=== PATIENT | male | born 1935 | race Caucasian/White ===

== ENCOUNTER 2016-06-08 12:51 | Day surgery (SDC) | payer MEDICARE ==
--- NOTE | ~2016-06-08 | EGD ---
EGD REPORT [facility] [address] [place]. [address] NAME: MOSHE MARTIN : [birth year] STATUS : REG [facility] [place] PAT#: [id number] AGE: 80 ADM/REG DATE : 06/08/16 MR#: [id number] REPORT SERV DATE: 06/08/16 DICTATED BY: RIZWANA FINK DATE: 06/08/16 REPORT STATUS : Draft TRANSCRIBED BY: [employer] [facility] DATE: 06/08/16 [facility]oscopy Center Patient Name: Moshe Martin Date of : 1935 Attending MD: RIZWANA FINK MD Procedure Date No Time: 06/08/2016 Procedure: Upper GI endoscopy Indications: Dysphagia, H/O eso cancer, recent PET with no cancer Referring MD: DANIEL SALAZAR RICHARD H. JENNINGS III, MD Medicines: See the Anesthesia note for documentation of the administered medications Complications: No immediate complications. Procedure: Pre-Anesthesia Assessment: - ASA Grade Assessment: III - A patient with severe systemic disease. After obtaining informed consent, the endoscope was passed under direct vision. Throughout the procedure, the patient's blood pressure, pulse, and oxygen saturations were monitored continuously. The GIF H190 [id number] was introduced through the mouth, and advanced to the lower third of esophagus. The GIF [id number] was introduced through the and advanced to the second part of duodenum. The upper GI endoscopy was accomplished without difficulty. The patient tolerated the procedure well. Initially performed in standard endo room but had to move to fluoro room Findings: Significant amount of saliva in esophagus evacuated. A Benign prob radiation induced severe (stenosis; an endoscope cannot pass) stenosis was found at GE Junction and was traversed after dilation with pediatric upper scope. A guidewire was placed under fluoroscopic guidance and the scope was withdrawn. Dilation was performed with a Savary dilator with no resistance at 18 Fr, no resistance at 21 Fr and no resistance at 24 Fr. The entire examined stomach was normal. The cardia and gastric fundus were normal on retroflexion. The examined duodenum was normal. Impression: - Significant amount of saliva in esophagus evacuated. - Esophageal stricture. Dilated. - Normal stomach. - Normal examined duodenum. Recommendation: - Nothing by mouth EGD REPORT [address] [place]. [address] NAME: MOSHE MARTIN : [birth year] STATUS : REG [facility]#: [id number] AGE: 80 ADM/REG DATE : 06/08/16 MR#: [id number] REPORT SERV DATE: 06/08/16 DICTATED BY: RIZWANA FINK DATE: 06/08/16 REPORT STATUS : Draft TRANSCRIBED BY: [employer] DATE: 06/08/16 Use J tube for all feeding and meds Call office to schedule EGD with dilation with fluoro for one week. Will do weekly dilations until esophagus is open. - Patient has a contact number available for emergencies. The signs and symptoms of potential delayed complications were discussed with the patient. Return to normal activities tomorrow. Written discharge instructions were provided to the patient. Procedure Code(s): --- Professional --- 10063, Esophagogastroduodenoscopy, flexible, transoral; with insertion of guide wire followed by passage of dilator(s) through esophagus over guide wire 81429, Intraluminal dilation of strictures and/or obstructions (eg, esophagus), radiological supervision and interpretation Diagnosis Code(s): --- Professional --- K22.2, Esophageal obstruction R13.10, Dysphagia, unspecified CPT copyright 2013 [employer]. All rights reserved. The codes documented in this report are preliminary and upon travel agent review may be revised to meet current compliance requirements. Rizwana Fink MD RIZWANA FINK MD 06/08/2016 3:10 PM This report has been signed electronically. Number of Addenda: 0 Note Initiated On: 06/08/2016 2:17 PM Scope Withdrawal Time 0 hours 0 minutes 0 seconds
[~2016-06-08 12:51] MED LIST: B12250T PO; ENDOCET1 TA1 PO; INDOCIN SR75 MG PO; KCL20UDL PEG; MAXZIDE PO; NORV5 PO; PERCOCET1 TA2 PO; PREDNISOLO15 MG/5 M1 PEG; REG PO; VITAMIN D400 UNI1 PO
[2016-06-16] MEDS ORDERED: PREDNISOLO15 MG/5 ML PEG (15:17)
[2016-10-25] MEDS ORDERED: SYSTANE OPH (08:20)
== END 2016-06-08 23:59 | disposition home or self-care (01) ==
LOC: DMU 12:51
PROVIDERS: Internal Medicine Gastroenterology
PROC: 0DJ08ZZ Inspection of Upper Intestinal Tract, Via Natural or Artificial Opening Endoscopic (ICD-10-PCS; principal; 2016-06-08 13:30)
DX: K22.2 Esophageal obstruction (principal); R13.10 Dysphagia, unspecified; K22.8 Other specified diseases of esophagus; I10 Essential (primary) hypertension; Z92.21 Personal history of antineoplastic chemotherapy; Z85.01 Personal history of malignant neoplasm of esophagus; Z79.899 Other long term (current) drug therapy; Z79.891 Long term (current) use of opiate analgesic; Z79.52 Long term (current) use of systemic steroids; Z88.0 Allergy status to penicillin
CPT/HCPCS: 76000

== ENCOUNTER 2016-06-15 12:45 | Day surgery (SDC) | payer MEDICARE ==
--- NOTE | ~2016-06-15 | EGD ---
EGD REPORT [facility] [address] [place]. [address] NAME: MOSHE MARTIN : [birth year] STATUS : REG [facility]#: [id number] AGE: 80 ADM/REG DATE : 06/15/16 MR#: [id number] REPORT SERV DATE: 06/15/16 DICTATED BY: RIZWANA FINK DATE: 06/15/16 REPORT STATUS : Draft TRANSCRIBED BY: [employer] DATE: 06/15/16 Endoscopy Center Patient Name: Moshe Martin Date of : 1935 Attending MD: RIZWANA FINK MD Procedure Date No Time: 06/15/2016 Procedure: Upper GI endoscopy Indications: Follow-up of esophageal stricture Referring MD: DANIEL BROWN Medicines: See the Anesthesia note for documentation of the administered medications Complications: No immediate complications. Procedure: Pre-Anesthesia Assessment: - ASA Grade Assessment: III - A patient with severe systemic disease. After obtaining informed consent, the endoscope was passed under direct vision. Throughout the procedure, the patient's blood pressure, pulse, and oxygen saturations were monitored continuously. The GIF [id number] was introduced through the mouth, and advanced to the second part of duodenum. The GIF H190 [id number] was introduced through the and advanced to the. The upper GI endoscopy was accomplished without difficulty. The patient tolerated the procedure well. Findings: Erythematous mucosa was found in the duodenal bulb. Mild inflammation was found in the gastric antrum. The cardia and gastric fundus were normal on retroflexion. A benign-appearing, intrinsic severe stenosis with superficial ulcers was found at GE junction. A guidewire was placed under fluoroscopic guidance and the scope was withdrawn. Dilation was performed with a Savary dilator with no resistance at 21 Fr, no resistance at 24 Fr and no resistance at 27 Fr. Lots of saliva in esophagus. Evacuated. Able to pass small endoscope after dilation. Impression: - Erythematous duodenopathy. - Gastritis. - Benign-appearing esophageal stricture. Dilated. - Lots of saliva in esophagus. Evacuated. Able to pass small endoscope after dilation. Recommendation: - Patient has a contact number available for emergencies. The signs and symptoms of potential delayed EGD REPORT [address] [place]. [address] NAME: MOSHE MARTIN : [birth year] [place] : [place] [facility] [place] [id number] AGE: 80 ADM/REG DATE : 06/15/16 MR#: [id number] REPORT SERV DATE: 06/15/16 DICTATED BY: RIZWANA FINK DATE: 06/15/16 REPORT STATUS : Draft TRANSCRIBED BY: [email or web address] DATE: 06/15/16 complications were discussed with the patient. Return to normal activities tomorrow. Written discharge instructions were provided to the patient. - NPO. - Repeat EGD with dilation in one week Use PEG tube for feeding later today Do not take anything by mouth Spit out all saliva/secretions Procedure Code(s): --- Professional --- 15802, Esophagogastroduodenoscopy, flexible, transoral; with insertion of guide wire followed by passage of dilator(s) through esophagus over guide wire Diagnosis Code(s): --- Professional --- K31.89, Other diseases of stomach and duodenum K29.70, Gastritis, unspecified, without bleeding K22.2, Esophageal obstruction CPT copyright 2013 [employer]. All rights reserved. The codes documented in this report are preliminary and upon mental health worker review may be revised to meet current compliance requirements. Rizwana Fink MD RIZWANA FINK MD 06/15/2016 2:51 PM This report has been signed electronically. Number of Addenda: 0 Note Initiated On: 06/15/2016 2:01 PM Scope Withdrawal Time 0 hours 0 minutes 0 seconds [address] [place] [id number]
[2016-06-16] MEDS ORDERED: PREDNISOLO15 MG/5 ML PEG (15:17)
[2016-10-25] MEDS ORDERED: SYSTANE OPH (08:20)
== END 2016-06-15 23:59 | disposition home or self-care (01) ==
LOC: DMU 12:45
PROVIDERS: Internal Medicine Gastroenterology
PROC: 0D748ZZ Dilation of Esophagogastric Junction, Via Natural or Artificial Opening Endoscopic (ICD-10-PCS; principal; 2016-06-15 14:00)
DX: K22.2 Esophageal obstruction (principal); K31.89 Other diseases of stomach and duodenum; K29.70 Gastritis, unspecified, without bleeding; M10.9 Gout, unspecified; M19.90 Unspecified osteoarthritis, unspecified site; I10 Essential (primary) hypertension; Z88.0 Allergy status to penicillin; Z79.899 Other long term (current) drug therapy; Z98.41 Cataract extraction status, right eye; Z98.42 Cataract extraction status, left eye; Z98.890 Other specified postprocedural states
CPT/HCPCS: 76000; 82962

== ENCOUNTER 2016-06-21 10:16 | Day surgery (SDC) | payer MEDICARE ==
--- NOTE | ~2016-06-21 | EGD ---
EGD REPORT [facility] [address]. [address] NAME: MOSHE MARTIN : [birth year] STATUS : REG [facility]#: [id number] AGE: 80 ADM/REG DATE : 06/21/16 MR#: [id number] REPORT SERV DATE: 06/21/16 DICTATED BY: RIZWANA FINK DATE: 06/21/16 REPORT STATUS : Draft TRANSCRIBED BY: [employer] DATE: 06/21/16 Endoscopy Center Patient Name: Moshe Martin Date of : 1935 Attending MD: RIZWANA FINK MD Procedure Date No Time: 06/21/2016 Procedure: Upper GI endoscopy Indications: Dysphagia Medicines: See the Anesthesia note for documentation of the administered medications Complications: No immediate complications. Procedure: Pre-Anesthesia Assessment: - ASA Grade Assessment: III - A patient with severe systemic disease. After obtaining informed consent, the endoscope was passed under direct vision. Throughout the procedure, the patient's blood pressure, pulse, and oxygen saturations were monitored continuously. The GIF H190 [id number] was introduced through the mouth, and advanced to the second part of duodenum. The upper GI endoscopy was accomplished without difficulty. The patient tolerated the procedure well. Findings: The examined duodenum was normal. The entire examined stomach was normal. The cardia and gastric fundus were normal on retroflexion. Saliva in esophagus evacuated Tight ulcerated stricture distal esophagus, adult scope able to pass after dilation, A guidewire was placed under fluoroscopic guidance and the scope was withdrawn. Dilation was performed with a Savary dilator with no resistance at 24 Fr, no resistance at 27 Fr and no resistance at 30 Fr. Impression: - Normal examined duodenum. - Normal stomach. - Saliva in esophagus evacuated - Tight ulcerated stricture distal esophagus, adult scope able to pass after dilation Recommendation: - Resume feeding via J tube Nothing by mouth Call office to schedule EGD with dilation with fluoro in 1 week EGD REPORT [facility] [address] [facility] [place] [address] NAME: MOSHE MARTIN : [birth year] STATUS : [place] [facility] [place] PAT#: [id number] AGE: 80 ADM/REG DATE : 06/21/16 MR#: [id number] REPORT SERV DATE: 06/21/16 DICTATED BY: RIZWANA FINK DATE: 06/21/16 REPORT STATUS : Draft TRANSCRIBED BY: [employer] DATE: 06/21/16 Procedure Code(s): --- Professional --- 93821, Esophagogastroduodenoscopy, flexible, transoral; with dilation of gastric/duodenal stricture(s) (eg, balloon, bougie) 33170, Intraluminal dilation of strictures and/or obstructions (eg, esophagus), radiological supervision and interpretation Diagnosis Code(s): --- Professional --- R13.10, Dysphagia, unspecified CPT copyright 2013 [employer]. All rights reserved. The codes documented in this report are preliminary and upon tap out operator review may be revised to meet current compliance requirements. Rizwana Fink MD RIZWANA FINK MD 06/21/2016 12:38 PM This report has been signed electronically. Number of Addenda: 0 Note Initiated On: 06/21/2016 11:01 AM Scope Withdrawal Time 0 hours 0 minutes 0 seconds [address] [place] [place] [id number]
[~2016-06-21 10:16] MED LIST changes: +PREDNISOLO15 MG/5 ML PEG
[2016-10-25] MEDS ORDERED: SYSTANE OPH (08:20)
== END 2016-06-21 23:59 | disposition home health service (06) ==
LOC: DMU 10:16
PROVIDERS: Internal Medicine Gastroenterology
PROC: 0D758ZZ Dilation of Esophagus, Via Natural or Artificial Opening Endoscopic (ICD-10-PCS; principal; 2016-06-21 11:30)
DX: R13.10 Dysphagia, unspecified (principal); I10 Essential (primary) hypertension; M19.90 Unspecified osteoarthritis, unspecified site; Z87.891 Personal history of nicotine dependence; Z88.0 Allergy status to penicillin
CPT/HCPCS: 76000

== ENCOUNTER 2016-06-28 05:42 | Day surgery (SDC) | payer MEDICARE ==
--- NOTE | ~2016-06-28 | EGD ---
EGD REPORT [facility] [address] [place]. [address] NAME: MOSHE MARTIN : [birth year] STATUS : REG [facility]#: [id number] AGE: 80 ADM/REG DATE : 06/28/16 MR#: [id number] REPORT SERV DATE: 06/28/16 DICTATED BY: RIZWANA FINK DATE: 06/28/16 REPORT STATUS : Draft TRANSCRIBED BY: [employer] DATE: 06/28/16 Endoscopy Center Patient Name: Moshe Martin Date of : 1935 Attending MD: RIZWANA FINK MD Procedure Date No Time: 06/28/2016 Procedure: Upper GI endoscopy Indications: Follow-up of esophageal stricture Referring MD: HARISH MCCARTHY MD Medicines: See the Anesthesia note for documentation of the administered medications Complications: No immediate complications. Procedure: After obtaining informed consent, the endoscope was passed under direct vision. Throughout the procedure, the patient's blood pressure, pulse, and oxygen saturations were monitored continuously. The GIF H190 [id number] was introduced through the mouth, and advanced to the second part of duodenum. The upper GI endoscopy was accomplished without difficulty. The patient tolerated the procedure well. Findings: The examined duodenum was normal. The entire examined stomach was normal. The cardia and gastric fundus were normal on retroflexion. A benign-appearing, intrinsic severe stenosis was found at GE junction with ulceration and was traversed after dilation. A guidewire was placed under fluoroscopic guidance and the scope was withdrawn. Dilation was performed with a Savary dilator with no resistance at 27 Fr, no resistance at 30 Fr and no resistance at 33 Fr. Impression: - Normal examined duodenum. - Normal stomach. - Benign-appearing esophageal stricture. Dilated. Recommendation: - Patient has a contact number available for emergencies. The signs and symptoms of potential delayed complications were discussed with the patient. Return to normal activities tomorrow. Written discharge instructions were provided to the patient. - NPO. - Continue present medications. - Use J tube for feeding Nothing by mouth Call office to schedule EGD with dilation with fluoro in EGD REPORT [facility] [address] [place]. [address] NAME: MOSHE MARTIN : [birth year] STATUS : REG [facility] [place] PAT#: [id number] AGE: 80 ADM/REG DATE : 06/28/16 MR#: [id number] REPORT SERV DATE: 06/28/16 DICTATED BY: RIZWANA FINK DATE: 06/28/16 REPORT STATUS : Draft TRANSCRIBED BY: [employer] DATE: 06/28/16 1 week Procedure Code(s): --- Professional --- 94751, Esophagogastroduodenoscopy, flexible, transoral; with insertion of guide wire followed by passage of dilator(s) through esophagus over guide wire Diagnosis Code(s): --- Professional --- K22.2, Esophageal obstruction CPT copyright 2013 [employer]. All rights reserved. The codes documented in this report are preliminary and upon family medicine chair review may be revised to meet current compliance requirements. Rizwana Fink MD RIZWANA FINK MD 06/28/2016 8:17 AM This report has been signed electronically. Number of Addenda: 0 Note Initiated On: 06/28/2016 7:53 AM Scope Withdrawal Time 0 hours 0 minutes 0 seconds [address] [place] [address]
[2016-10-25] MEDS ORDERED: SYSTANE OPH (08:20)
== END 2016-06-28 23:59 | disposition home or self-care (01) ==
LOC: DMU 05:42
PROVIDERS: Internal Medicine Gastroenterology
PROC: 0D748ZZ Dilation of Esophagogastric Junction, Via Natural or Artificial Opening Endoscopic (ICD-10-PCS; principal; 2016-06-28 07:00)
DX: K22.2 Esophageal obstruction (principal); I10 Essential (primary) hypertension; M19.90 Unspecified osteoarthritis, unspecified site; M10.9 Gout, unspecified; Z98.890 Other specified postprocedural states; Z88.0 Allergy status to penicillin; Z79.899 Other long term (current) drug therapy; Z98.41 Cataract extraction status, right eye; Z98.42 Cataract extraction status, left eye
CPT/HCPCS: 76000

== ENCOUNTER 2016-07-06 05:48 | Day surgery (SDC) | payer MEDICARE ==
--- NOTE | ~2016-07-06 | EGD ---
EGD REPORT [facility] [address] [place] [address] NAME: MOSHE MARTIN : [birth year] [facility]US : [facility] [id number] AGE: 80 ADM/REG DATE : 07/06/16 MR#: [id number] REPORT SERV DATE: 07/06/16 DICTATED BY: RIZWANA FINK DATE: 07/06/16 REPORT STATUS : Draft [facility]ANSCRIBED BY: [facility] DATE: 07/06/16 Endoscopy Center Patient Name: Moshe Martin Date of : 1935 Attending MD: RIZWANA FINK MD Procedure Date No Time: 07/06/2016 Procedure: Upper GI endoscopy Indications: Dysphagia Referring MD: DANIEL BROWN, HARISH MCCARTHY MD, Tyshawn Liu Medicines: See the Anesthesia note for documentation of the administered medications Complications: No immediate complications. Procedure: Pre-Anesthesia Assessment: - ASA Grade Assessment: III - A patient with severe systemic disease. After obtaining informed consent, the endoscope was passed under direct vision. Throughout the procedure, the patient's blood pressure, pulse, and oxygen saturations were monitored continuously. The GIF H190 [id number] was introduced through the mouth, and advanced to the second part of duodenum. The upper GI endoscopy was accomplished without difficulty. The patient tolerated the procedure well. Findings: The examined duodenum was normal. The entire examined stomach was normal. The cardia and gastric fundus were normal on retroflexion. A small hiatus hernia was present. A benign-appearing, intrinsic moderate stenosis was found at GE junction and was traversed. A guidewire was placed under fluoroscopic guidance and the scope was withdrawn. Dilation was performed with a Savary dilator with no resistance at 33 Fr and no resistance at 36 Fr. Impression: - Normal examined duodenum. - Normal stomach. - Hiatus hernia. - Benign-appearing esophageal stricture. Dilated. Recommendation: - Patient has a contact number available for emergencies. The signs and symptoms of potential delayed complications were discussed with the patient. Return to normal activities tomorrow. Written discharge instructions were provided to the patient. - NPO today. EGD REPORT [address] [address] NAME: MOSHE MARTIN : [birth year] STATUS : REG [facility] [place] PAT#: [id number] AGE: 80 ADM/REG DATE : 07/06/16 MR#: [id number] REPORT SERV DATE: 07/06/16 DICTATED BY: RIZWANA FINK DATE: 07/06/16 REPORT STATUS : Draft TRANSCRIBED BY: [employer] DATE: 07/06/16 - Continue present medications. - Call office to repeat EGD dilation in 1 week May use feeding tube today Ok for clear liquids by mouth starting tomorrow Procedure Code(s): --- Professional --- 12475, Esophagogastroduodenoscopy, flexible, transoral; with insertion of guide wire followed by passage of dilator(s) through esophagus over guide wire Diagnosis Code(s): --- Professional --- K44.9, Diaphragmatic hernia without obstruction or gangrene K22.2, Esophageal obstruction R13.10, Dysphagia, unspecified CPT copyright 2013 [employer]. All rights reserved. The codes documented in this report are preliminary and upon humanities division chair review may be revised to meet current compliance requirements. Rizwana Fink MD RIZWANA FINK MD 07/06/2016 8:00 AM This report has been signed electronically. Number of Addenda: 0 Note Initiated On: 07/06/2016 7:18 AM Scope Withdrawal Time 0 hours 0 minutes 0 seconds [address] [place] [address]
[2016-10-25] MEDS ORDERED: SYSTANE OPH (08:20)
== END 2016-07-06 23:59 | disposition home or self-care (01) ==
LOC: DMU 05:48
PROVIDERS: Internal Medicine Gastroenterology
PROC: 0D747ZZ Dilation of Esophagogastric Junction, Via Natural or Artificial Opening (ICD-10-PCS; principal; 2016-07-06 07:00)
DX: K44.9 Diaphragmatic hernia without obstruction or gangrene (principal); K22.2 Esophageal obstruction; R13.10 Dysphagia, unspecified; I11.0 Hypertensive heart disease with heart failure; M10.9 Gout, unspecified; M19.90 Unspecified osteoarthritis, unspecified site; Z85.01 Personal history of malignant neoplasm of esophagus; Z92.21 Personal history of antineoplastic chemotherapy; Z92.3 Personal history of irradiation; Z98.41 Cataract extraction status, right eye; Z98.42 Cataract extraction status, left eye; Z96.1 Presence of intraocular lens; Z98.890 Other specified postprocedural states; Z88.0 Allergy status to penicillin; Z87.891 Personal history of nicotine dependence; Z97.8 Presence of other specified devices
CPT/HCPCS: 76000

== ENCOUNTER 2016-07-13 05:44 | Day surgery (SDC) | payer MEDICARE ==
--- NOTE | ~2016-07-13 | EGD ---
EGD REPORT [facility] [address] [place]. [address] NAME: MOSHE MARTIN : [birth year] STATUS : REG [facility]#: [id number] AGE: 80 ADM/REG DATE : 07/13/16 MR#: [id number] REPORT SERV DATE: 07/13/16 DICTATED BY: RIZWANA FINK DATE: 07/13/16 REPORT STATUS : Draft [facility]: [facility] DATE: 07/13/16 Endoscopy Center Patient Name: Moshe Martin Date of : 1935 Attending MD: RIZWANA FINK MD Procedure Date No Time: 07/13/2016 Procedure: Upper GI endoscopy Indications: Dysphagia Referring MD: DANIEL BROWN Medicines: See the Anesthesia note for documentation of the administered medications Complications: No immediate complications. Procedure: Pre-Anesthesia Assessment: - ASA Grade Assessment: III - A patient with severe systemic disease. After obtaining informed consent, the endoscope was passed under direct vision. Throughout the procedure, the patient's blood pressure, pulse, and oxygen saturations were monitored continuously. The GIF H190 [id number] was introduced through the mouth, and advanced to the second part of duodenum. The upper GI endoscopy was accomplished without difficulty. The patient tolerated the procedure well. Findings: Diffuse erythematous mucosa was found in the duodenal bulb. Mild inflammation was found in the gastric antrum. The cardia and gastric fundus were normal on retroflexion. A small hiatus hernia was present. A benign-appearing, intrinsic mild stenosis was found. A guidewire was placed under fluoroscopic guidance and the scope was withdrawn. Dilation was performed with a Savary dilator with no resistance at 33 Fr, no resistance at 36 Fr and no resistance at 39 Fr. Impression: - Erythematous duodenopathy. - Gastritis. - Hiatus hernia. - Benign-appearing esophageal stricture. Dilated. Recommendation: - Patient has a contact number available for emergencies. The signs and symptoms of potential delayed complications were discussed with the patient. Return to normal activities tomorrow. Written discharge instructions were provided to the patient. - Clear liquid diet for 2 days. EGD REPORT [address] [address] NAME: MOSHE MARTIN : [birth year] STATUS : [place] [facility] [place]#: [id number] AGE: 80 ADM/REG DATE : 07/13/16 MR#: [id number] REPORT SERV DATE: 07/13/16 DICTATED BY: RIZWANA FINK DATE: 07/13/16 REPORT STATUS : Draft TRANSCRIBED BY: [employer] DATE: 07/13/16 - Continue present medications. - In 48 hrs start pureed diet Repeat EGD with dilation next week Procedure Code(s): --- Professional --- 23203, Esophagogastroduodenoscopy, flexible, transoral; with insertion of guide wire followed by passage of dilator(s) through esophagus over guide wire Diagnosis Code(s): --- Professional --- K31.89, Other diseases of stomach and duodenum K29.70, Gastritis, unspecified, without bleeding K44.9, Diaphragmatic hernia without obstruction or gangrene K22.2, Esophageal obstruction R13.10, Dysphagia, unspecified CPT copyright 2013 [employer]. All rights reserved. The codes documented in this report are preliminary and upon lead janitor review may be revised to meet current compliance requirements. Rizwana Fink MD RIZWANA FINK MD 07/13/2016 7:41 AM This report has been signed electronically. Number of Addenda: 0 Note Initiated On: 07/13/2016 7:08 AM Scope Withdrawal Time 0 hours 0 minutes 0 seconds
[2016-10-25] MEDS ORDERED: SYSTANE OPH (08:20)
== END 2016-07-13 23:59 | disposition home or self-care (01) ==
LOC: DMU 05:44
PROVIDERS: Internal Medicine Gastroenterology
PROC: 0D757ZZ Dilation of Esophagus, Via Natural or Artificial Opening (ICD-10-PCS; principal; 2016-07-13 07:31)
DX: K29.70 Gastritis, unspecified, without bleeding (principal); K31.89 Other diseases of stomach and duodenum; K44.9 Diaphragmatic hernia without obstruction or gangrene; K22.2 Esophageal obstruction; R13.10 Dysphagia, unspecified; M19.90 Unspecified osteoarthritis, unspecified site; M10.9 Gout, unspecified; I10 Essential (primary) hypertension; Z86.2 Personal history of diseases of the blood and blood-forming organs and certain disorders involving the immune mechanism; Z85.01 Personal history of malignant neoplasm of esophagus; Z92.3 Personal history of irradiation; Z92.21 Personal history of antineoplastic chemotherapy; Z98.890 Other specified postprocedural states; Z97.8 Presence of other specified devices; Z85.79 Personal history of other malignant neoplasms of lymphoid, hematopoietic and related tissues; Z88.0 Allergy status to penicillin; Z87.891 Personal history of nicotine dependence

== ENCOUNTER 2016-07-18 05:45 | Day surgery (SDC) | payer MEDICARE ==
--- NOTE | ~2016-07-18 | EGD ---
EGD REPORT [facility] [address] [place]. [address] NAME: MOSHE MARTIN : [birth year] STATUS : REG [facility]#: [id number] AGE: 80 ADM/REG DATE : 07/18/16 MR#: [id number] REPORT SERV DATE: 07/18/16 DICTATED BY: RIZWANA FINK DATE: 07/18/16 REPORT STATUS : Draft [facility]ANS[facility]IBED [facility]: [facility] DATE: 07/18/16 Endoscopy Center Patient Name: Moshe Martin Date of : 1935 Attending MD: RIZWANA FINK MD Procedure Date No Time: 07/18/2016 Procedure: Upper GI endoscopy Indications: Dysphagia Referring MD: HARISH MCCARTHY MD Medicines: See the Anesthesia note for documentation of the administered medications Complications: No immediate complications. Procedure: Pre-Anesthesia Assessment: - ASA Grade Assessment: III - A patient with severe systemic disease. After obtaining informed consent, the endoscope was passed under direct vision. Throughout the procedure, the patient's blood pressure, pulse, and oxygen saturations were monitored continuously. The GIF H190 [id number] was introduced through the mouth, and advanced to the second part of duodenum. The upper GI endoscopy was accomplished without difficulty. The patient tolerated the procedure well. Findings: The examined duodenum was normal. The entire examined stomach was normal. The cardia and gastric fundus were normal on retroflexion. A small hiatus hernia was present. A benign-appearing, intrinsic mild stenosis was found wit superficial ulceration. A guidewire was placed under fluoroscopic guidance and the scope was withdrawn. Dilation was performed with a Savary dilator with no resistance at 36 Fr and no resistance at 39 Fr. Impression: - Normal examined duodenum. - Normal stomach. - Hiatus hernia. - Benign-appearing esophageal stricture. Dilated. Recommendation: - Patient has a contact number available for emergencies. The signs and symptoms of potential delayed complications were discussed with the patient. Return to normal activities tomorrow. Written discharge instructions were provided to the patient. - Clear liquid diet today. EGD REPORT [address] [address] NAME: MOSHE MARTIN : [birth year] STATUS : REG [facility] [place] PAT#: [id number] AGE: 80 ADM/REG DATE : 07/18/16 MR#: [id number] REPORT SERV DATE: 07/18/16 DICTATED BY: RIZWANA FINK DATE: 07/18/16 REPORT STATUS : Draft TRANSCRIBED BY: [employer] DATE: 07/18/16 - Resume pureed diet tomorrow Call office to schedule EGD with dilation with fluoro for 2 weeks - Continue present medications. - Patient has a contact number available for emergencies. The signs and symptoms of potential delayed complications were discussed with the patient. Return to normal activities tomorrow. Written discharge instructions were provided to the patient. Procedure Code(s): --- Professional --- 74747, Esophagogastroduodenoscopy, flexible, transoral; with insertion of guide wire followed by passage of dilator(s) through esophagus over guide wire Diagnosis Code(s): --- Professional --- K44.9, Diaphragmatic hernia without obstruction or gangrene K22.2, Esophageal obstruction R13.10, Dysphagia, unspecified CPT copyright 2013 [employer]. All rights reserved. The codes documented in this report are preliminary and upon aircraft engineer review may be revised to meet current compliance requirements. Rizwana Fink MD RIZWANA FINK MD 07/18/2016 7:17 AM This report has been signed electronically. Number of Addenda: 0 Note Initiated On: 07/18/2016 6:57 AM [address] [id number]
[2016-10-25] MEDS ORDERED: SYSTANE OPH (08:20)
== END 2016-07-18 23:59 | disposition home health service (06) ==
LOC: DMU 05:45
PROVIDERS: Internal Medicine Gastroenterology
PROC: 0D758ZZ Dilation of Esophagus, Via Natural or Artificial Opening Endoscopic (ICD-10-PCS; principal; 2016-07-18 07:00)
DX: K22.2 Esophageal obstruction (principal); K44.9 Diaphragmatic hernia without obstruction or gangrene; I10 Essential (primary) hypertension; M19.90 Unspecified osteoarthritis, unspecified site; Z88.0 Allergy status to penicillin; Z87.891 Personal history of nicotine dependence; Z98.890 Other specified postprocedural states
CPT/HCPCS: 76000

== ENCOUNTER 2016-08-03 05:50 | Day surgery (SDC) | payer MEDICARE ==
--- NOTE | ~2016-08-03 | EGD ---
EGD REPORT [facility] [address] [place]. [address] NAME: MOSHE MARTIN : [birth year] STATUS : REG [facility]#: [id number] AGE: 81 ADM/REG DATE : 08/03/16 MR#: [id number] REPORT SERV DATE: 08/03/16 DICTATED BY: RIZWANA FINK DATE: 08/03/16 REPORT STATUS : Draft [facility]: [facility] DATE: 08/03/16 Endoscopy Center Patient Name: Moshe Martin Date of : 1935 Attending MD: RIZWANA FINK MD Procedure Date No Time: 08/03/2016 Procedure: Upper GI endoscopy Indications: Dysphagia Referring MD: DANIEL BROWN Medicines: See the Anesthesia note for documentation of the administered medications Complications: No immediate complications. Procedure: Pre-Anesthesia Assessment: - ASA Grade Assessment: III - A patient with severe systemic disease. After obtaining informed consent, the endoscope was passed under direct vision. Throughout the procedure, the patient's blood pressure, pulse, and oxygen saturations were monitored continuously. The GIF H190 [id number] was introduced through the mouth, and advanced to the second part of duodenum. The upper GI endoscopy was accomplished without difficulty. The patient tolerated the procedure well. Findings: The examined duodenum was normal. Mild inflammation was found in the entire examined stomach. A small hiatus hernia was present. A benign-appearing, intrinsic mild stenosis was found. A guidewire was placed under fluoroscopic guidance and the scope was withdrawn. Dilation was performed with a Savary dilator with no resistance at 33 Fr and no resistance at 36 Fr. Impression: - Normal examined duodenum. - Gastritis. - Hiatus hernia. - Benign-appearing esophageal stricture. Dilated. Recommendation: - Patient has a contact number available for emergencies. The signs and symptoms of potential delayed complications were discussed with the patient. Return to normal activities tomorrow. Written discharge instructions were provided to the patient. - Clear liquid diet today. - Continue present medications. EGD REPORT [address] [address] NAME: MOSHE MARTIN : [birth year] STATUS : REG [facility]#: [id number] AGE: 81 ADM/REG DATE : 08/03/16 MR#: [id number] REPORT SERV DATE: 08/03/16 DICTATED BY: RIZWANA FINK DATE: 08/03/16 REPORT STATUS : Draft TRANSCRIBED BY: [employer] DATE: 08/03/16 - Pureed diet tomorrow EGD with dilation in one week Procedure Code(s): --- Professional --- 93747, Esophagogastroduodenoscopy, flexible, transoral; with insertion of guide wire followed by passage of dilator(s) through esophagus over guide wire Diagnosis Code(s): --- Professional --- K29.70, Gastritis, unspecified, without bleeding K44.9, Diaphragmatic hernia without obstruction or gangrene K22.2, Esophageal obstruction R13.10, Dysphagia, unspecified CPT copyright 2013 [employer]. All rights reserved. The codes documented in this report are preliminary and upon mastic sprayer review may be revised to meet current compliance requirements. Rizwana Fink MD RIZWANA FINK MD 08/03/2016 9:31 AM This report has been signed electronically. Number of Addenda: 0 Note Initiated On: 08/03/2016 7:16 AM Scope Withdrawal Time 0 hours 0 minutes 0 seconds [address] [id number]
[2016-10-25] MEDS ORDERED: SYSTANE OPH (08:20)
== END 2016-08-03 23:59 | disposition home or self-care (01) ==
LOC: DMU 05:50
PROVIDERS: Internal Medicine Gastroenterology
PROC: 0D758ZZ Dilation of Esophagus, Via Natural or Artificial Opening Endoscopic (ICD-10-PCS; principal; 2016-08-03 07:00)
DX: K22.2 Esophageal obstruction (principal); K29.70 Gastritis, unspecified, without bleeding; K44.9 Diaphragmatic hernia without obstruction or gangrene; I10 Essential (primary) hypertension; M19.90 Unspecified osteoarthritis, unspecified site; M10.9 Gout, unspecified; Z85.01 Personal history of malignant neoplasm of esophagus; Z88.0 Allergy status to penicillin; Z79.899 Other long term (current) drug therapy
CPT/HCPCS: 76000; J3010

== ENCOUNTER 2016-08-10 05:51 | Day surgery (SDC) | payer MEDICARE ==
--- NOTE | ~2016-08-10 | EGD ---
EGD REPORT [facility] [address] [address] NAME: MOSHE MARTIN : [birth year] STATUS : REG [facility]#: [id number] AGE: 81 ADM/REG DATE : 08/10/16 MR#: [id number] REPORT SERV DATE: 08/10/16 DICTATED BY: RIZWANA FINK DATE: 08/10/16 REPORT STATUS : Draft TRANSCRIBED BY: [facility] DATE: 08/10/16 Endoscopy Center Patient Name: Moshe Martin Date of : 1935 Attending MD: RIZWANA FINK MD Procedure Date No Time: 08/10/2016 Procedure: Upper GI endoscopy Indications: Dysphagia Referring MD: HARISH CRUZ MD Medicines: See the Anesthesia note for documentation of the administered medications Complications: No immediate complications. Procedure: Pre-Anesthesia Assessment: - ASA Grade Assessment: III - A patient with severe systemic disease. After obtaining informed consent, the endoscope was passed under direct vision. Throughout the procedure, the patient's blood pressure, pulse, and oxygen saturations were monitored continuously. The GIF H190 [id number] was introduced through the mouth, and advanced to the second part of duodenum. The upper GI endoscopy was accomplished without difficulty. The patient tolerated the procedure well. Findings: The examined duodenum was normal. The entire examined stomach was normal. The cardia and gastric fundus were normal on retroflexion. A small hiatus hernia was present. A benign-appearing, intrinsic mild stenosis was found and was in distal esophagus. A guidewire was placed and the scope was withdrawn. Dilation was performed with a Savary dilator with no resistance at 36 Fr and no resistance at 39 Fr. Impression: - Normal examined duodenum. - Normal stomach. - Hiatus hernia. - Benign-appearing esophageal stricture. Dilated. Recommendation: - Patient has a contact number available for emergencies. The signs and symptoms of potential delayed complications were discussed with the patient. Return to normal activities tomorrow. Written discharge instructions were provided to the patient. - Continue present medications. EGD REPORT [address] [address] NAME: MOSHE MARTIN : [birth year] STATUS : REG [facility] [place] PAT#: [id number] AGE: 81 ADM/REG DATE : 08/10/16 MR#: [id number] REPORT SERV DATE: 08/10/16 DICTATED BY: RIZWANA FINK DATE: 08/10/16 REPORT STATUS : Draft TRANSCRIBED BY: [employer] DATE: 08/10/16 - Repeat the upper endoscopy in 1 week for retreatment (no fluoro). - Clear liquids today, pureed diet starting tomorrow Procedure Code(s): --- Professional --- 07010, Esophagogastroduodenoscopy, flexible, transoral; with insertion of guide wire followed by passage of dilator(s) through esophagus over guide wire Diagnosis Code(s): --- Professional --- K44.9, Diaphragmatic hernia without obstruction or gangrene K22.2, Esophageal obstruction R13.10, Dysphagia, unspecified CPT copyright 2013 [employer]. All rights reserved. The codes documented in this report are preliminary and upon coding compliance manager review may be revised to meet current compliance requirements. Rizwana Fink MD RIZWANA FINK MD 08/10/2016 7:43 AM This report has been signed electronically. Number of Addenda: 0 Note Initiated On: 08/10/2016 7:27 AM Scope Withdrawal Time 0 hours 0 minutes 0 seconds [address] [id number]
[2016-10-25] MEDS ORDERED: SYSTANE OPH (08:20)
== END 2016-08-10 23:59 | disposition home health service (06) ==
LOC: DMU 05:51
PROVIDERS: Internal Medicine Gastroenterology
PROC: 0D738ZZ Dilation of Lower Esophagus, Via Natural or Artificial Opening Endoscopic (ICD-10-PCS; principal; 2016-08-10 07:30)
DX: K22.2 Esophageal obstruction (principal); K44.9 Diaphragmatic hernia without obstruction or gangrene; I10 Essential (primary) hypertension; G47.33 Obstructive sleep apnea (adult) (pediatric); M19.90 Unspecified osteoarthritis, unspecified site; Z88.0 Allergy status to penicillin; Z79.899 Other long term (current) drug therapy; Z87.891 Personal history of nicotine dependence; Z98.41 Cataract extraction status, right eye; Z98.42 Cataract extraction status, left eye; Z98.890 Other specified postprocedural states

== ENCOUNTER 2016-08-17 05:38 | Day surgery (SDC) | payer MEDICARE ==
--- NOTE | ~2016-08-17 | EGD ---
EGD REPORT [facility] [address] [place]. [address] NAME: MOSHE MARTIN : 39 STATUS : REG [facility]#: [id number] AGE: 81 ADM/REG DATE : 08/17/16 MR#: [id number] REPORT SERV DATE: 08/17/16 DICTATED BY: RIZWANA FINK DATE: 08/17/16 REPORT STATUS : Draft TRANSCRIBED BY: [facility] [facility] DATE: 08/17/16 Endoscopy Center Patient Name: Moshe Martin Date of : 1935 Attending MD: RIZWANA FINK MD Procedure Date No Time: 08/17/2016 Procedure: Upper GI endoscopy Indications: Dysphagia Referring MD: Lucia CRUZ Medicines: See the Anesthesia note for documentation of the administered medications Complications: No immediate complications. Procedure: Pre-Anesthesia Assessment: - ASA Grade Assessment: III - A patient with severe systemic disease. After obtaining informed consent, the endoscope was passed under direct vision. Throughout the procedure, the patient's blood pressure, pulse, and oxygen saturations were monitored continuously. The GIF H190 [id number] was introduced through the mouth, and advanced to the second part of duodenum. The upper GI endoscopy was accomplished without difficulty. The patient tolerated the procedure well. Findings: The examined duodenum was normal. Mild inflammation was found in the entire examined stomach. The cardia and gastric fundus were normal on retroflexion. A small hiatus hernia was present. A benign-appearing, intrinsic mild stenosis in distal esophagus was found. A guidewire was placed and the scope was withdrawn. Dilation was performed with a Savary dilator with no resistance at 39 Fr and no resistance at 42 Fr. Irregular mucosa at GE junction, Biopsies were taken with a cold forceps for histology. Impression: - Normal examined duodenum. - Gastritis. - Hiatus hernia. - Benign-appearing esophageal stricture. Dilated. - Irregular mucosa at GE junction Recommendation: - Patient has a contact number available for emergencies. The signs and symptoms of potential delayed complications were discussed with the patient. Return to EGD REPORT [address] [address] NAME: MOSHE MARTIN : 39 [place]US : [place] [facility] [place]#: [id number] AGE: 81 ADM/REG DATE : 08/17/16 MR#: [id number] REPORT SERV DATE: 08/17/16 DICTATED BY: RIZWANA FINK DATE: 08/17/16 REPORT STATUS : Draft TRANSCRIBED BY: [employer] DATE: 08/17/16 normal activities tomorrow. Written discharge instructions were provided to the patient. - Regular diet. - Continue present medications. - Repeat the upper endoscopy in 1 week for retreatment. - FOR YOUR BIOPSY RESULTS: Please go to [email or web address] and register to receive your results via the portal. Your biopsy results will be posted there in about 7 to 10 days. IF you do not see result in 10 days, call office. - Clear liquids today, the soft diet for 48 hrs, then well chewed diet Procedure Code(s): --- Professional --- 76510, Esophagogastroduodenoscopy, flexible, transoral; with insertion of guide wire followed by passage of dilator(s) through esophagus over guide wire 05652, Esophagogastroduodenoscopy, flexible, transoral; with biopsy, single or multiple Diagnosis Code(s): --- Professional --- K29.70, Gastritis, unspecified, without bleeding K44.9, Diaphragmatic hernia without obstruction or gangrene K22.2, Esophageal obstruction R13.10, Dysphagia, unspecified CPT copyright 2013 [employer]. All rights reserved. The codes documented in this report are preliminary and upon crop nutrition scientist review may be revised to meet current compliance requirements. Rizwana Fink MD RIZWANA FINK MD 08/17/2016 7:18 AM This report has been signed electronically. Number of Addenda: 0 Note Initiated On: 08/17/2016 7:03 AM Scope Withdrawal Time 0 hours 0 minutes 0 seconds [address] [id number]
[2016-10-25] MEDS ORDERED: SYSTANE OPH (08:20)
== END 2016-08-17 23:59 | disposition home or self-care (01) ==
LOC: DMU 05:38
PROVIDERS: Internal Medicine Gastroenterology
PROC: 0D748ZZ Dilation of Esophagogastric Junction, Via Natural or Artificial Opening Endoscopic (ICD-10-PCS; principal; 2016-08-17 07:00)
DX: K22.10 Ulcer of esophagus without bleeding (principal); K29.70 Gastritis, unspecified, without bleeding; K44.9 Diaphragmatic hernia without obstruction or gangrene; K22.2 Esophageal obstruction; R13.10 Dysphagia, unspecified; M19.90 Unspecified osteoarthritis, unspecified site; M10.9 Gout, unspecified; I10 Essential (primary) hypertension; Z92.3 Personal history of irradiation; Z85.01 Personal history of malignant neoplasm of esophagus; Z92.21 Personal history of antineoplastic chemotherapy; Z96.1 Presence of intraocular lens; Z88.0 Allergy status to penicillin; Z87.891 Personal history of nicotine dependence; Z97.2 Presence of dental prosthetic device (complete) (partial); Z79.899 Other long term (current) drug therapy
CPT/HCPCS: 88305

== ENCOUNTER 2016-08-24 05:43 | Day surgery (SDC) | payer MEDICARE ==
--- NOTE | ~2016-08-24 | EGD ---
EGD REPORT [facility] [address]. [address] NAME: MOSHE MARTIN : [birth year] STATUS : REG [facility]#: [id number] AGE: 81 ADM/REG DATE : 08/24/16 MR#: [id number] REPORT SERV DATE: 08/24/16 DICTATED BY: RIZWANA FINK DATE: 08/24/16 REPORT STATUS : Draft TRANSCRIBED BY: [employer] DATE: 08/24/16 Endoscopy Center Patient Name: Moshe Martin Date of : 1935 Attending MD: RIZWANA FINK MD Procedure Date No Time: 08/24/2016 Procedure: Upper GI endoscopy Indications: Dysphagia Referring MD: HARISH MCCARTHY MD, DANIEL BROWN Medicines: See the Anesthesia note for documentation of the administered medications Complications: No immediate complications. Procedure: Pre-Anesthesia Assessment: - ASA Grade Assessment: III - A patient with severe systemic disease. After obtaining informed consent, the endoscope was passed under direct vision. Throughout the procedure, the patient's blood pressure, pulse, and oxygen saturations were monitored continuously. The GIF H190 [id number] was introduced through the mouth, and advanced to the second part of duodenum. The upper GI endoscopy was accomplished without difficulty. The patient tolerated the procedure well. Findings: The examined duodenum was normal. Mild inflammation was found in the gastric fundus (on retroflexion). A small hiatus hernia was present. A benign-appearing, intrinsic mild stenosis measuring in distal esophagus was found. A guidewire was placed and the scope was withdrawn. Dilation was performed with a Savary dilator with no resistance at 42 Fr and no resistance at 45 Fr. Impression: - Normal examined duodenum. - Gastritis. - Hiatus hernia. - Benign-appearing esophageal stricture. Dilated. Recommendation: - Patient has a contact number available for emergencies. The signs and symptoms of potential delayed complications were discussed with the patient. Return to normal activities tomorrow. Written discharge instructions were provided to the patient. - Continue present medications. - Clear lquids today, soft diet tomorrow, well chewed EGD REPORT [address] [address] NAME: MOSHE MARTIN : [birth year] STATUS : REG [facility] PAT#: [id number] AGE: 81 ADM/REG DATE : 08/24/16 MR#: [id number] REPORT SERV DATE: 08/24/16 DICTATED BY: RIZWANA FINK DATE: 08/24/16 REPORT STATUS : Draft TRANSCRIBED BY: [employer] DATE: 08/24/16 diet following day Repeat EGD 1 wk Procedure Code(s): --- Professional --- 14111, Esophagogastroduodenoscopy, flexible, transoral; with insertion of guide wire followed by passage of dilator(s) through esophagus over guide wire Diagnosis Code(s): --- Professional --- K29.70, Gastritis, unspecified, without bleeding K44.9, Diaphragmatic hernia without obstruction or gangrene K22.2, Esophageal obstruction R13.10, Dysphagia, unspecified CPT copyright 2013 [employer]. All rights reserved. The codes documented in this report are preliminary and upon director of career resources review may be revised to meet current compliance requirements. Rizwana Fink MD RIZWANA FIKN MD 08/24/2016 7:45 AM This report has been signed electronically. Number of Addenda: 0 Note Initiated On: 08/24/2016 7:28 AM Scope Withdrawal Time 0 hours 0 minutes 0 seconds [address] [place] [id number]
[2016-10-25] MEDS ORDERED: SYSTANE OPH (08:20)
== END 2016-08-24 23:59 | disposition home or self-care (01) ==
LOC: DMU 05:43
PROVIDERS: Internal Medicine Gastroenterology
PROC: 0D758ZZ Dilation of Esophagus, Via Natural or Artificial Opening Endoscopic (ICD-10-PCS; principal; 2016-08-24 07:30)
DX: K22.2 Esophageal obstruction (principal); K29.70 Gastritis, unspecified, without bleeding; K44.9 Diaphragmatic hernia without obstruction or gangrene; I10 Essential (primary) hypertension; Z85.01 Personal history of malignant neoplasm of esophagus; Z87.891 Personal history of nicotine dependence; Z88.0 Allergy status to penicillin; Z98.41 Cataract extraction status, right eye; Z98.42 Cataract extraction status, left eye; Z98.890 Other specified postprocedural states

== ENCOUNTER 2016-08-31 05:58 | Day surgery (SDC) | payer MEDICARE ==
--- NOTE | ~2016-08-31 | EGD ---
EGD REPORT [facility] [address]. [address] NAME: MOSHE MARTIN : 39 STATUS : REG [facility]#: [id number] AGE: 81 ADM/REG DATE : 08/31/16 MR#: [id number] REPORT SERV DATE: 08/31/16 DICTATED BY: RIZWANA FINK DATE: 08/31/16 REPORT STATUS : Draft [facility]: [facility] DATE: 08/31/16 Endoscopy Center Patient Name: Moshe Martin Date of : 1935 Attending MD: RIZWANA FINK MD Procedure Date No Time: 08/31/2016 Procedure: Upper GI endoscopy Indications: Dysphagia Referring MD: DANIEL BROWN Medicines: See the Anesthesia note for documentation of the administered medications Complications: No immediate complications. Procedure: Pre-Anesthesia Assessment: - ASA Grade Assessment: III - A patient with severe systemic disease. After obtaining informed consent, the endoscope was passed under direct vision. Throughout the procedure, the patient's blood pressure, pulse, and oxygen saturations were monitored continuously. The GIF H190 [id number] was introduced through the mouth, and advanced to the second part of duodenum. The upper GI endoscopy was accomplished without difficulty. The patient tolerated the procedure well. Findings: Erythematous mucosa was found in the duodenal bulb. Mild inflammation was found in the gastric antrum. The cardia and gastric fundus were normal on retroflexion. A small hiatus hernia was present. A benign-appearing, intrinsic mild stenosis was found. A guidewire was placed and the scope was withdrawn. Dilation was performed with a Savary dilator with no resistance at 45 Fr and no resistance at 48 Fr. Impression: - Erythematous duodenopathy. - Gastritis. - Hiatus hernia. - Benign-appearing esophageal stricture. Dilated. Recommendation: - Patient has a contact number available for emergencies. The signs and symptoms of potential delayed complications were discussed with the patient. Return to normal activities tomorrow. Written discharge instructions were provided to the patient. - Clear liquid diet today. - Soft diet tomorrow EGD REPORT [address] [address] NAME: MOSHE MARTIN : [birth year] STATUS : REG [facility]#: [id number] AGE: 81 ADM/REG DATE : 08/31/16 MR#: [id number] REPORT SERV DATE: 08/31/16 DICTATED BY: RIZWANA FINK DATE: 08/31/16 REPORT STATUS : Draft TRANSCRIBED BY: [employer] DATE: 08/31/16 Well chewed diet following day - Repeat the upper endoscopy in 1 month for retreatment. Procedure Code(s): --- Professional --- 52994, Esophagogastroduodenoscopy, flexible, transoral; with insertion of guide wire followed by passage of dilator(s) through esophagus over guide wire Diagnosis Code(s): --- Professional --- K31.89, Other diseases of stomach and duodenum K29.70, Gastritis, unspecified, without bleeding K44.9, Diaphragmatic hernia without obstruction or gangrene K22.2, Esophageal obstruction R13.10, Dysphagia, unspecified CPT copyright 2013 [employer]. All rights reserved. The codes documented in this report are preliminary and upon hydrologic engineer review may be revised to meet current compliance requirements. Rizwana Fink MD RIZWANA FINK MD 08/31/2016 7:43 AM This report has been signed electronically. Number of Addenda: 0 Note Initiated On: 08/31/2016 7:16 AM Scope Withdrawal Time 0 hours 0 minutes 0 seconds [address] [id number]
[2016-10-25] MEDS ORDERED: SYSTANE OPH (08:20)
== END 2016-08-31 23:59 | disposition home health service (06) ==
LOC: DMU 05:58
PROVIDERS: Internal Medicine Gastroenterology
PROC: 0D758ZZ Dilation of Esophagus, Via Natural or Artificial Opening Endoscopic (ICD-10-PCS; principal; 2016-08-31 07:30)
DX: K22.2 Esophageal obstruction (principal); K29.70 Gastritis, unspecified, without bleeding; K44.9 Diaphragmatic hernia without obstruction or gangrene; K31.89 Other diseases of stomach and duodenum; I10 Essential (primary) hypertension; J45.909 Unspecified asthma, uncomplicated; M19.90 Unspecified osteoarthritis, unspecified site; Z88.0 Allergy status to penicillin; Z79.899 Other long term (current) drug therapy; Z98.41 Cataract extraction status, right eye; Z98.42 Cataract extraction status, left eye; Z98.890 Other specified postprocedural states; Z87.891 Personal history of nicotine dependence